=== PATIENT | female | born 1980 | race Hispanic/Latino ===

== ENCOUNTER 2017-10-04 21:22 | Emergency (ER) | payer OTHER ==
[2017-10-04] MEDS ORDERED: METOCLOPRAMIDE 10 MG TABLET ONE (22:22)
== END 2017-10-04 22:58 | disposition home or self-care (01) ==
LOC: EDH 21:22
DX: G43.909 Migraine, unspecified, not intractable, without status migrainosus (principal); Z88.5 Allergy status to narcotic agent; Z88.8 Allergy status to other drugs, medicaments and biological substances; Z79.899 Other long term (current) drug therapy; Z90.49 Acquired absence of other specified parts of digestive tract; Z90.710 Acquired absence of both cervix and uterus

== ENCOUNTER 2019-04-17 06:31 | Observation (INO) | payer OTHER ==
[~2019-04-17] VITALS: Ht 167.6 cm; Wt 144.2 kg
[2019-04-17] MEDS ORDERED: METOPROLOL TARTRATE 1 MG/ML 5ML VIAL IV ONE (06:58)
[2019-04-17 07:03] LABS: BASOPHILS % (AUTO) 0.4 % (0.0-5.0); EOSINOPHILS % (AUTO) 3.4 % (0.0-8.0); HEMATOCRIT 37.6 % (36-48); LYMPHOCYTES % (AUTO) 44.2 % (21.0-51.0); MEAN CORPUSCULAR HEMOGLOBIN 29.6 pg (27.0-33.0); MEAN CORPUSCULAR HGB CONC 34.1 g/dL (32.0-36.0); MEAN CORPUSCULAR VOLUME 86.8 fL (79-99); MONOCYTES % (AUTO) 4.4 % (3.0-13.0); NEUTROPHILS % (AUTO) 47.6 % (40.0-77.0); NUCLEATED RED BLOOD CELLS 0.2 % (0.0-0.19); PLATELET COUNT (AUTO) 300 K/uL (130-400); RED BLOOD CELL COUNT(AUTO) 4.32 MIL/uL (4.00-5.50); RED CELL DISTRIBUTION WIDTH 13.3 % (11.0-15.5); WHITE BLOOD COUNT (AUTO) 7.1 K/uL (4.8-10.8)
[2019-04-17 07:17] LABS: POTASSIUM 3.6 mmol/L (3.5-5.1)
[2019-04-17 07:22] LABS: BILIRUBIN,TOTAL 0.7 mg/dL (0.2-1.0); TOTAL PROTEIN, SERUM 7.9 g/dL (6.0-8.3)
[2019-04-17 07:23] LABS: ALBUMIN 3.6 g/dL (3.5-5.0)
[2019-04-17 07:31] LABS: INR 0.99 (0.85-1.15); PARTIAL THROMBOPLASTIN TIME 27.2 SEC (26.3-35.5); PROTHROMBIN TIME 10.4 SEC (9.6-11.6)
[2019-04-17] MEDS ORDERED: MAGNESIUM 2GM PREMIX 50ML 50 ML IV ONE (07:48)
[2019-04-17] MEDS ORDERED: ASPIRIN 325 MG TABLET ONE (07:49)
[2019-04-17] MEDS ORDERED: SODIUM CHLORIDE 0.9% 1000ML 1,000 ML IV ONE (07:51)
[2019-04-17 08:12] LABS: APPEARANCE,URINE Clear (CLEAR); BILIRUBIN,URINE Negative (NEGATIVE); COLOR,URINE Yellow (YELLOW); GLUCOSE, URINE (UA) Negative (NEGATIVE); KETONES,URINE Negative (NEGATIVE); LEUKOCYTE ESTERASE ,URINE Negative (NEGATIVE); NITRATE,URINE Negative (NEGATIVE); OCCULT BLOOD,URINE Negative (NEGATIVE); PH,URINE 6.5 (5.0-8.0); PROTEIN,URINE Negative (NEGATIVE)
[2019-04-17 08:18] LABS: AMPHET/METH SCREEN,URINE NEGATIVE (NEGATIVE); BARBITURATE SCREEN, URINE NEGATIVE (NEGATIVE); BENZODIAZEPINES SCREEN,URINE NEGATIVE (NEGATIVE); CANNABINOID SCREEN,URINE NEGATIVE (NEGATIVE); COCAINE SCREEN,URINE NEGATIVE (NEGATIVE); OPIATE SCREEN,URINE NEGATIVE (NEGATIVE); PHENCYCLIDINE SCREEN,URINE NEGATIVE (NEGATIVE)
[2019-04-17 19:57] VITALS: BP 126/81
[2019-04-17] MEDS ORDERED: LORAZEPAM 1 MG TABLET PO PRN (20:30)
[2019-04-17] MEDS: METOPROLOL TARTRATE 25 MG TAB PO SCH (20:55)
[2019-04-17] MEDS ORDERED: ROPINIROLE HCL 0.25 MG TABLET PO SCH (21:00)
[2019-04-17] MEDS ORDERED: FLUOXETINE HCL 10 MG CAPSULE PO SCH (21:00)
[2019-04-17] MEDS ORDERED: ACETAMINOPHEN 325 MG TAB PO PRN (22:15)
[2019-04-17 23:38] VITALS: BP 133/84
[2019-04-18 03:35] VITALS: BP 140/75
[2019-04-18 04:52] LABS: ALBUMIN 2.9 g/dL (3.5-5.0); BILIRUBIN,TOTAL 0.6 mg/dL (0.2-1.0); CREATININE 0.9 mg/dL (0.5-1.5); POTASSIUM 4.2 mmol/L (3.5-5.1); THYROID STIMULATING HORMONE 2.1 uIU/mL (0.36-3.74)
--- NOTE | 2019-04-18 07:35 | NUR ---
ASSESSMENT ENCOUNTERED PT A&OX3, CALM COOPERATIVE AND DOES NOT APPEAR TO BE IN ANY DISTRESS NOR ANY NEURO DEFICITS PRESENT. PT DENIES PAIN SOB, NAUSEA. TELE MONITOR DISPLAYS NSR. PT IS AMBULATORY, GAIT STEADY AND STRONG WITH STAND BY ASSIST. CALL LIGHT WITHIN REACH.
[2019-04-18 08:09] VITALS: BP 132/83
[2019-04-18] MEDS: METOPROLOL TARTRATE 25 MG TAB PO SCH (09:06)
[2019-04-18 11:55] VITALS: BP 121/76
--- NOTE | 2019-04-18 16:00 | NUR ---
DISCHARGE INSTRUCTIONS GIVEN, PIV REMOVED AND INTACT, DISCHARGED HOME TO FAMILY VEHICLE VIA WHEELCHAIR.
[2019-04-18 16:06] VITALS: BP 120/63
== END 2019-04-18 16:30 | disposition home or self-care (01) ==
LOC: EDH 06:31 → EDHIP 09:00 → 2AH 19:36
PROVIDERS: ADMIT Internal Medicine; ATTEND Internal Medicine
DX: I48.91 Unspecified atrial fibrillation (principal); G47.33 Obstructive sleep apnea (adult) (pediatric); J35.1 Hypertrophy of tonsils; F41.9 Anxiety disorder, unspecified; E66.01 Morbid (severe) obesity due to excess calories; G43.909 Migraine, unspecified, not intractable, without status migrainosus; Z85.841 Personal history of malignant neoplasm of brain; Z90.49 Acquired absence of other specified parts of digestive tract; Z90.710 Acquired absence of both cervix and uterus; Z79.899 Other long term (current) drug therapy; Z88.5 Allergy status to narcotic agent; Z88.6 Allergy status to analgesic agent; Z88.8 Allergy status to other drugs, medicaments and biological substances; Z68.43 Body mass index [BMI] 50.0-59.9, adult
CPT/HCPCS: 36415 ×2; 71045; 80053 ×2; 80305; 81003; 82550; 83735; 84443; 84484; 85025; 85378; 85610; 85730; 93005 ×4; 93306; 99284; G0378 ×31; J3475; J3490; J7030

== ENCOUNTER 2021-12-23 22:32 | Emergency (ER) | payer MEDICAID, OTHER ==
[~2021-12-23] VITALS: Ht 165.1 cm; Wt 142.9 kg
[2021-12-24 01:17] LABS: BASOPHILS % (AUTO) 0.6 % (0.0-5.0); EOSINOPHILS % (AUTO) 6.2 % (0.0-8.0); HEMATOCRIT 34.4 % (36-48); LYMPHOCYTES % (AUTO) 43.9 % (21.0-51.0); MEAN CORPUSCULAR HEMOGLOBIN 29.1 pg (27.0-33.0); MEAN CORPUSCULAR HGB CONC 33.4 g/dL (32.0-36.0); MEAN CORPUSCULAR VOLUME 87.1 fL (79-99); NEUTROPHILS % (AUTO) 45.2 % (40.0-77.0); PLATELET COUNT (AUTO) 269 K/uL (130-400); RED BLOOD CELL COUNT(AUTO) 3.95 MIL/uL (4.00-5.50); RED CELL DISTRIBUTION WIDTH 13.3 % (11.0-15.5); WHITE BLOOD COUNT (AUTO) 7.1 K/uL (4.8-10.8)
[2021-12-24 01:20] LABS: BILIRUBIN,URINE NEGATIVE (NEGATIVE); COLOR,URINE YELLOW (YELLOW); GLUCOSE, URINE (UA) NEGATIVE (NEGATIVE); KETONES,URINE NEGATIVE (NEGATIVE); LEUKOCYTE ESTERASE ,URINE NEGATIVE (NEGATIVE); NITRATE,URINE NEGATIVE (NEGATIVE); OCCULT BLOOD,URINE NEGATIVE (NEGATIVE); PROTEIN,URINE NEGATIVE (NEGATIVE)
[2021-12-24 01:21] LABS: HCG,QUAL RESULT NEGATIVE (NEGATIVE)
[2021-12-24 01:27] LABS: POTASSIUM 3.7 mmol/L (3.5-5.1)
[2021-12-24] MEDS ORDERED: METOCLOPRAMIDE 10 MG TABLET PO ONE (01:30)
[2021-12-24 01:41] LABS: APPEARANCE,URINE CLEAR (CLEAR)
[2021-12-24] MEDS ORDERED: ACET-2079 PO (04:42)
[2021-12-24 04:44] VITALS: BP 156/86
== END 2021-12-24 04:48 | disposition home or self-care (01) ==
LOC: EDH 22:32
DX: G44.209 Tension-type headache, unspecified, not intractable (principal); Z88.6 Allergy status to analgesic agent; Z88.8 Allergy status to other drugs, medicaments and biological substances; Z98.890 Other specified postprocedural states; Z90.49 Acquired absence of other specified parts of digestive tract
CPT/HCPCS: 36415; 70450; 80048; 81003; 81025; 85025

== ENCOUNTER → 2022-02-15 | Outpatient (CLI) | payer OTHER ==
[~2022-02-15] VITALS: Ht 12.7 cm; Wt 146.4 kg
[~2022-02-15] MED LIST: ACET-2079 PO
== END | disposition home or self-care (01) ==
LOC: DTH 13:04
PROVIDERS: ATTEND Surgery
DX: Z71.3 Dietary counseling and surveillance (principal); K21.9 Gastro-esophageal reflux disease without esophagitis; K76.0 Fatty (change of) liver, not elsewhere classified; M19.91 Primary osteoarthritis, unspecified site; G47.33 Obstructive sleep apnea (adult) (pediatric); E66.01 Morbid (severe) obesity due to excess calories; Z68.43 Body mass index [BMI] 50.0-59.9, adult
CPT/HCPCS: 97802

== ENCOUNTER → 2022-04-19 | Outpatient (CLI) | payer MEDICAID, OTHER ==
[~2022-04-19] MED LIST changes: +OMEP20TA20 PO; +ROPI1TAB13 PO
== END | disposition home or self-care (01) ==
LOC: RAH 12:33
PROVIDERS: ATTEND Internal Medicine Cardiovascular Disease
DX: Z13.6 Encounter for screening for cardiovascular disorders (principal)
CPT/HCPCS: 75571

== ENCOUNTER 2022-05-03 06:27 | Day surgery (SDC) | payer MEDICAID ==
[2022-05-03] VITALS (9 sets, daily range): BP systolic 110–137; BP diastolic 63–86
[2022-05-03] MEDS ORDERED: 0.9%NACL 1000ML 1,000 ML IV ONE (07:04)
[2022-05-03] MEDS ORDERED: PROPOFOL 10 MG/ML 20ML VIAL IV ONE ×2 (07:49→07:59)
[2022-05-03] MEDS ORDERED: LIDOCAINE HCL-MPF 2% 10ML AMP IJ ONE (07:50)
[2022-05-03] MEDS ORDERED: SIMETHICONE 40 MG/0.6 ML ML ONE (08:23)
== END 2022-05-03 10:10 | disposition home or self-care (01) ==
LOC: DAH 06:27 → ENDO 06:27
PROVIDERS: ATTEND Surgery
DX: K21.9 Gastro-esophageal reflux disease without esophagitis (principal); Z20.822 Contact with and (suspected) exposure to COVID-19; I10 Essential (primary) hypertension; E11.9 Type 2 diabetes mellitus without complications; E66.01 Morbid (severe) obesity due to excess calories; G47.33 Obstructive sleep apnea (adult) (pediatric); I48.91 Unspecified atrial fibrillation; Z90.710 Acquired absence of both cervix and uterus; Z90.49 Acquired absence of other specified parts of digestive tract; Z98.891 History of uterine scar from previous surgery; Z68.43 Body mass index [BMI] 50.0-59.9, adult
CPT/HCPCS: 43235; J7030 ×2; J3490 ×3; A4620; A4215; A4223; A4657; A4222; A4221; A4663; A4606; J2704

== ENCOUNTER 2022-12-25 08:24 | Emergency (ER) | payer MEDICAID ==
[~2022-12-25] VITALS: Ht 165.1 cm; Wt 99.8 kg
[~2022-12-25 08:24] MED LIST changes: -ROPI1TAB13 PO; +ROPI1TAB46 PO
[2022-12-25 11:20] VITALS: BP 120/80
== END 2022-12-25 11:20 | disposition home or self-care (01) ==
LOC: EDH 08:24
DX: J02.8 Acute pharyngitis due to other specified organisms (principal); E11.9 Type 2 diabetes mellitus without complications; Z79.899 Other long term (current) drug therapy; Z88.5 Allergy status to narcotic agent; Z90.49 Acquired absence of other specified parts of digestive tract; Z90.710 Acquired absence of both cervix and uterus
CPT/HCPCS: 87880

== ENCOUNTER → 2024-02-20 | Outpatient (CLI) | payer MEDICAID ==
[2024-02-20 22:24] VITALS: PULSE 54; RESP 12
[2024-02-20 23:12] VITALS: PULSE 62; RESP 14
[2024-02-20 23:30] VITALS: PULSE 61; RESP 18
[2024-02-20 23:59] VITALS: PULSE 62; RESP 14
[2024-02-21] VITALS (10 sets, daily range): PULSE 58–73; RESP 12–16
== END | disposition home or self-care (01) ==
LOC: SLP 19:56
PROVIDERS: ATTEND Surgery
DX: G47.33 Obstructive sleep apnea (adult) (pediatric) (principal)
CPT/HCPCS: 95810